=== PATIENT | male | born 1995 | race Caucasian/White ===

== ENCOUNTER 2025-05-26 10:12 | Emergency (ER) | payer OTHER ==
[~2025-05-26] VITALS: Ht 170.2 cm; Wt 95.0 kg
[2025-05-26 10:21] VITALS: TEMP 36.5; O2SAT 99
[2025-05-26] MEDS: TETRACAINE 0.5% OPHTH DROPS 4ML BOTHEYE ONE (11:00)
[2025-05-26] MEDS: FLUORESCEIN SODIUM 1MG/STRIP LEFTEYE ONE (11:00)
[2025-05-26] MEDS ORDERED: CARB15DR LEFTEYE (11:36)
[2025-05-26 12:05] VITALS: BP 114/55; PULSE 63; RESP 14; O2SAT 100
== END 2025-05-26 12:20 | disposition home or self-care (01) ==
LOC: ER 10:12
DX: H57.12 Ocular pain, left eye (principal)
CPT/HCPCS: 99283